=== PATIENT | female | born 1990 | race Two or more races ===

== ENCOUNTER 2020-01-28 13:43 | Emergency (ER) | payer OTHER ==
[~2020-01-28] VITALS: Ht 162.6 cm; Wt 100.2 kg
[2020-01-28] MEDS ORDERED: PROAIR HFA8.5 GM IH (14:05)
[2020-01-28] MEDS ORDERED: PRENATABS RX T1 EACH PO (14:05)
[2020-01-28] MEDS ORDERED: ROBITUSSIN COU237 M1 PO (14:05)
== END 2020-01-28 19:43 | disposition home or self-care (01) ==
LOC: ER 13:43
DX: O23.31 Infections of other parts of urinary tract in pregnancy, first trimester (principal); O98.811 Other maternal infectious and parasitic diseases complicating pregnancy, first trimester; B37.89 Other sites of candidiasis; Z3A.10 10 weeks gestation of pregnancy

== ENCOUNTER 2020-02-01 17:00 | Emergency (ER) | payer OTHER ==
[~2020-02-01] VITALS: Ht 162.6 cm; Wt 100.2 kg
[~2020-02-01 17:00] MED LIST: PRENATABS RX T1 EACH PO; PROAIR HFA8.5 GM IH; ROBITUSSIN COU237 M1 PO
[2020-02-01] MEDS ORDERED: DUI500 (18:00)
== END 2020-02-01 19:43 | disposition home or self-care (01) ==
LOC: ER 17:00
DX: M76.61 Achilles tendinitis, right leg (principal)

== ENCOUNTER 2020-02-08 17:13 | Emergency (ER) | payer OTHER ==
[~2020-02-08] VITALS: Ht 152.4 cm; Wt 98.4 kg
[~2020-02-08 17:13] MED LIST changes: +DUI500
== END 2020-02-08 20:09 | disposition home or self-care (01) ==
LOC: ER 17:13
DX: O26.891 Other specified pregnancy related conditions, first trimester (principal); R06.02 Shortness of breath; O23.31 Infections of other parts of urinary tract in pregnancy, first trimester; Z3A.11 11 weeks gestation of pregnancy

== ENCOUNTER 2020-05-03 20:48 | Outpatient (CLI) | payer OTHER ==
[2020-05-03] MEDS ORDERED: PRENATAL TABLE1 EAC1 PO (21:45)
== END 2020-05-04 18:32 | disposition home or self-care (01) ==
LOC: OBS/DEL 20:48
PROVIDERS: ATTEND Specialist
DX: O26.843 Uterine size-date discrepancy, third trimester (principal); O26.893 Other specified pregnancy related conditions, third trimester; R10.2 Pelvic and perineal pain; O60.03 Preterm labor without delivery, third trimester

== ENCOUNTER 2020-08-19 10:51 | Outpatient (CLI) | payer OTHER ==
[~2020-08-19 10:51] MED LIST changes: +PRENATAL TABLE1 EAC1 PO
== END 2020-08-19 13:09 | disposition home or self-care (01) ==
LOC: OBS/DEL 10:51
PROVIDERS: ATTEND Specialist
DX: O47.1 False labor at or after 37 completed weeks of gestation (principal); Z3A.37 37 weeks gestation of pregnancy

== ENCOUNTER 2020-08-20 04:43 | Inpatient (IN) | payer OTHER ==
[~2020-08-20] VITALS: Ht 157.5 cm; Wt 2.7 kg
[2020-08-24] MEDS ORDERED: TRAM1TAB98 PO (17:34)
== END 2020-08-24 18:01 | disposition home or self-care (01) | DRG 788 ==
LOC: O/R 04:43 → OB/GYN 04:43 → LDR 04:43 → O/R 22:10 → OB/GYN 08-21 00:07
PROVIDERS: ADMIT Specialist; ATTEND Specialist
PROC: 10907ZC Drainage of Amniotic Fluid, Therapeutic from Products of Conception, Via Natural or Artificial Opening (ICD-10-PCS; 2020-08-20)
PROC: 3E033VJ Introduction of Other Hormone into Peripheral Vein, Percutaneous Approach (ICD-10-PCS; 2020-08-20)
PROC: 4A1HXFZ Monitoring of Products of Conception, Cardiac Rhythm, External Approach (ICD-10-PCS; 2020-08-20)
PROC: 10D00Z1 Extraction of Products of Conception, Low, Open Approach (ICD-10-PCS; principal; 2020-08-20 22:30)
DX: O62.1 Secondary uterine inertia (principal); O61.0 Failed medical induction of labor; Z3A.39 39 weeks gestation of pregnancy; Z37.0 Single live birth; Z20.822 Contact with and (suspected) exposure to COVID-19

== ENCOUNTER 2022-09-26 15:39 | Emergency (ER) | payer OTHER ==
[~2022-09-26] VITALS: Ht 162.6 cm; Wt 95.3 kg
[~2022-09-26 15:39] MED LIST changes: +TRAM1TAB98 PO
[2022-09-26] MEDS ORDERED: PEPCID AC20 MG PO (19:36)
[2022-09-26] MEDS ORDERED: CIPRO500 MG PO (19:36)
== END 2022-09-26 21:09 | disposition home or self-care (01) ==
LOC: ER 15:39
DX: K52.9 Noninfective gastroenteritis and colitis, unspecified (principal); Z88.2 Allergy status to sulfonamides; Z91.040 Latex allergy status; Z91.018 Allergy to other foods; Z88.1 Allergy status to other antibiotic agents; Z87.09 Personal history of other diseases of the respiratory system